=== PATIENT | female | born 1960 | race Hispanic/Latino ===

== ENCOUNTER 2017-09-12 07:00 | Emergency (ER) | payer MEDICARE, MEDICAID ==
[2017-09-12 07:17] VITALS: BP 130/76; PULSE 74; RESP 16; TEMP 97.6; O2SAT 95
[2017-09-12 07:18] VITALS: BMI 33.2
[2017-09-12] MEDS ORDERED: Oxycodone/Acetaminophen 5/325 mg Tab PO STA (08:03)
--- NOTE | 2017-09-12 08:21 | ED PDOC ---
Upper Extremity Pain/Injury Time Seen by Provider: 09/12/17 07:28 Chief Complaint (Nursing): Upper Extremity Problem/Injury Chief Complaint (Provider): Left shoulder pain History Per: Patient History/Exam Limitations: no limitations Onset/Duration Of Symptoms: Days (2) Current Symptoms Are (Timing): Still Present Quality: "Pain" Additional History Per: Patient Additional Complaint(s): 56yo female, with past medical history of depression, presents to the ED for evaluation of left shoulder injury, sustained 2 days ago. Patient states she was attempting to lift a heavy case of water after which she had pain in her left shoulder. Patient states she took Motrin 600mg for her pain with no relief. She denies any numbness, tingling, weakness. No other medical complaints. Past Medical History Reviewed: Historical Data, Nursing Documentation, Vital Signs Vital Signs: Last Vital Signs Temp 97.6 F 09/12/17 07:16 Pulse 74 09/12/17 07:16 Resp 16 09/12/17 07:16 BP 130/76 09/12/17 07:16 Pulse Ox 95 09/12/17 07:16 - Medical History PMH: Depression - Surgical History Surgical History: No Surg Hx - Family History Family History: States: No Known Family Hx, Unknown Family Hx - Living Arrangements Living Arrangements: With Family - Social History Current smoker - smoking cessation education provided: No Alcohol: None Drugs: Denies - Home Medications Home Medications: Ambulatory Orders Medication Instructions Recorded Naproxen 500 mg PO BID #20 tab 09/12/17 - Allergies Allergies/Adverse Reactions: Allergies Allergy/AdvReac Type Severity Reaction Status Date / Time acetaminophen [From Percocet] AdvReac VOMITING Verified 09/12/17 08:19 oxycodone [From Percocet] AdvReac VOMITING Verified 09/12/17 08:19 Review of Systems Musculoskeletal: Positive for: Shoulder Pain (left ) Neurological: Negative for: Weakness, Numbness, Other (tingling) Physical Exam - Reviewed Nursing Documentation Reviewed: Yes Vital Signs Reviewed: Yes - Physical Exam Appears: Positive for: Non-toxic, No Acute Distress Head Exam: Positive for: ATRAUMATIC, NORMAL INSPECTION, NORMOCEPHALIC Skin: Positive for: Normal Color Neck: Positive for: Supple Cardiovascular/Chest: Positive for: Regular Rate, Rhythm Respiratory: Positive for: Normal Breath Sounds. Negative for: Respiratory Distress Extremity: Negative for: Normal ROM (decreased ROM at left shoulder due to pain) , Tenderness, Deformity, Swelling Neurologic/Psych: Positive for: Alert, Oriented. Negative for: Motor/Sensory Deficits - ECG O2 Sat by Pulse Oximetry: 95 (RA) Medical Decision Making Medical Decision Making: Time: 801 Impression: Shoulder injury Differnetial: possible rotator cuff injury, musculoskeletal pain Plan: -- XR Left shoulder -- Ultram 50 mg PO -- Toradol 30 mg IM Reassess Time: 919 Shoulder XR as read by provider is with no acute findings. Time: 1009 Upon reassessment, patient states she is feeling much better. Patient to be given an arm sling and is stable for discharge home, will give referral to orthopedic motion picture projectionist for a follow up. Scribe Attestation: Documented by Gabby Richter acting as a scribe for Anne Sorensen MD. Provider Attestation: All medical record entries made by the Scribe were at my direction and personally dictated by me. I have reviewed the chart and agree that the record accurately reflects my personal performance of the history, physical exam, medical decision making, and the department course for this patient. I have also personally directed, reviewed, and agree with the discharge instructions and disposition. Disposition - Clinical Impression Clinical Impression: Shoulder injury - Disposition Referrals: Alen Wood III, MD [Staff Provider] - Disposition: Routine/Home Disposition Time: 10:10 Condition: GOOD Additional Instructions: Follow up with your PCP in 2-3 days. Prescriptions: Naproxen 500 mg PO BID #20 tab Instructions: Shoulder Sprain (ED) Forms: [employer] (Indonesian)
--- NOTE | 2017-09-12 10:45 | RAD ---
PROCEDURE: Radiographs of the Left Shoulder HISTORY: left shoulder pain pulled muscle COMPARISON: No prior. FINDINGS: BONES: Normal. No fracture. JOINTS: Normal. Glenohumeral and acromioclavicular joints preserved. No osteoarthritis. SOFT TISSUES: Normal. OTHER FINDINGS: None. IMPRESSION: Normal radiographs of the left shoulder.
== END 2017-09-12 10:33 | disposition home or self-care (01) ==
LOC: H.ER 07:00
DX: S49.92XA Unspecified injury of left shoulder and upper arm, initial encounter (principal); X50.0XXA Overexertion from strenuous movement or load, initial encounter; Y92.89 Other specified places as the place of occurrence of the external cause; F32.9 Major depressive disorder, single episode, unspecified; Z88.5 Allergy status to narcotic agent
CPT/HCPCS: 73030; 96372; 99283; J1885